=== PATIENT | female | born 1980 | race Caucasian/White ===

== ENCOUNTER → 2016-06-16 | Outpatient (CLI) | payer OTHER ==
[2016-02-22 10:26] VITALS: BP 120/69
[~2016-06-16] MED LIST: ALPR0.5T PO; ASPI81TA2 PO; IBUP-1060 PO; LEVO100T5 PO; NIFE30TA17 PO; NORE1TAB48 PO; PARO20TA55 PO; PREN-6 PO; ZOLP5TAB PO
--- NOTE | 2016-06-16 10:10 | RAD ---
Left breast ultrasound History: Patient is breast-feeding, palpable lump in the left breast. Comparison: None. Findings: Ultrasound imaging was performed of the left breast by staff nuclear medicine technologist. In the left breast at 2:00, 2 cm from nipple, in the area of clinical interest, there is a well-circumscribed cyst with enhanced through transmission. Cyst measures 8 x 8 x 9 mm. Impression: Palpable lesion in the breast at 6:00, 2 cm from nipple, corresponds to 9 mm simple cyst. BI-RADS CATEGORY: 2 BENIGN FINDING(S) RECOMMENDED FOLLOW-UP: CLIN FOLLOW UP IMAGING CLINICALLY INDICATED
== END | disposition home or self-care (01) ==
LOC: KCIC MAMMO 09:31
PROVIDERS: ATTEND Obstetrics & Gynecology
DX: N63 Unspecified lump in breast (principal)
CPT/HCPCS: 76641

== ENCOUNTER 2017-03-27 07:12 | Emergency (ER) | payer OTHER ==
[~2017-03-27 07:12] MED LIST changes: +ASPI-630 PO; -ASPI81TA2 PO; -PARO20TA55 PO; +PARO20TA99 PO
--- NOTE | 2017-03-27 07:38 | PHYS DOC ---
Past Medical History Past Medical History: Hypothyroid Past Surgical History: Other Additional Past Surgical Histo: Right ectopic Alcohol Use: None Drug Use: None Adult General Chief Complaint Chief Complaint: FOOT INJURY PAIN HPI HPI Patient is a 36 year old female who presents with mild pain on the right foot that began a month ago after she dropped a railroad tie on her right foot. She states the pain is mostly on the great toe at the MTP joint with occasional numbness to the toe. Review of Systems Review of Systems Constitutional: Denies fever or chills [] Musculoskeletal: Right foot pain Integument: Denies rash or skin lesions [] Neurologic: Denies headache, focal weakness or sensory changes [] ] Allergies Allergies Allergies Coded Allergies Type Severity Reaction Last Updated Verified Sulfa (Sulfonamide Antibiotics) Allergy Severe Anaphylaxis 02/03/15 Yes Physical Exam Physical Exam Constitutional: Well developed, well nourished, no acute distress, non-toxic appearance. [] Back: No tenderness, no CVA tenderness. [] Extremities: Right foot with no obvious deformity. Tenderness on palpation of the right great toe MTP joint. Full range of motion to the right foot and toes. No pain or tenderness on the navicular bone or the base of the fifth metatarsal of the right foot. +2 right pedal pulse. Cap refill less than 2 seconds the right toes. Sensation intact to the right foot.. Neurologic: Alert and oriented X 3, normal motor function, normal sensory function, no focal deficits noted. [] Psychologic: Affect normal, judgement normal, mood normal. [] Current Patient Data Vital Signs Vital Signs Date Time Temp Pulse Resp B/P (MAP) Pulse Ox O2 Delivery O2 Flow Rate FiO2 03/27/17 08:09 98.2 16 123/76 (92) Room Air 98.2 EKG EKG [] Radiology/Procedures Radiology/Procedures []PROCEDURE: FOOT RIGHT 3V Three-view right foot radiographs 03/27/2017 Clinical history: Right foot pain for the last 6 weeks after dropping rail road tie on foot. AP, lateral and oblique digital radiographs of the right foot were obtained. No fracture or dislocation of the right foot is seen. No radiopaque foreign body is noted. Mild degenerative changes are seen involving the first MTP joint. Impression: No fracture or dislocation of the right foot is seen. DICTATED and SIGNED BY: CHICHO REARDON MD DATE: 03/27/17 0816 CC: YRIS PASCUAL APRN; WILLIAM ASH MD ~ Course & Med Decision Making Course & Med Decision Making Pertinent Labs and Imaging studies reviewed. (See chart for details) Patient is in the ED with right foot contusion after dropping a railroad tie on her foot one month ago. Right foot x-rays interpreted by radiologist were negative for any acute findings. Offered patient an orthopedic shoe, she refused it. Discharged with diclofenac cream. OTC anti-inflammatories and Tylenol recommended. Follow-up with orthopedic doctor in the next 7 days. Ice and elevation encouraged. Dragon Disclaimer Dragon Disclaimer This electronic medical record was generated, in whole or in part, using a voice recognition dictation system. Departure Departure Impression: Primary Impression: Contusion of right foot Disposition: 01 HOME, SELF-CARE Condition: STABLE Referrals: WILLIAM ASH MD (PCP) follow up in the next 7 days Patient Instructions: Contusion, [id number] Additional Instructions: You were seen for right foot contusion. Ice and elevate the extremity. Take an anti-inflammatories as needed for pain or Tylenol. Follow up with the provided orthopedic doctor or your own doctor in the next 7 days. I wrote your prescription for diclofenac cream. This is an anti-inflammatory cream. Use it as needed for pain. Scripts Diclofenac Sodium (VOLTAREN) 100 Gm Gel..gram. 1 GM TP QID, #100 GM 2 Refills Prov: YRIS PASCUAL APRN 03/27/17 Problem Qualifiers Primary Impression: Contusion of right foot Encounter type: initial encounter Qualified Codes: S90.31XA - Contusion of right foot, initial encounter YRIS PASCUAL APRN Mar 27, 2017 07:38
[2017-03-27 08:09] VITALS: BP 123/76
--- NOTE | 2017-03-27 08:23 | RAD ---
Three-view right foot radiographs 03/27/2017 Clinical history: Right foot pain for the last 6 weeks after dropping rail road tie on foot. AP, lateral and oblique digital radiographs of the right foot were obtained. No fracture or dislocation of the right foot is seen. No radiopaque foreign body is noted. Mild degenerative changes are seen involving the first MTP joint. Impression: No fracture or dislocation of the right foot is seen.
[2017-03-27] MEDS ORDERED: DICL100G18 TP (08:34)
== END 2017-03-27 08:53 | disposition home or self-care (01) ==
LOC: ER 07:12
DX: S90.31XA Contusion of right foot, initial encounter (principal); E03.9 Hypothyroidism, unspecified; Z88.2 Allergy status to sulfonamides; W22.8XXA Striking against or struck by other objects, initial encounter; Y93.89 Activity, other specified; Y92.89 Other specified places as the place of occurrence of the external cause; Y99.8 Other external cause status
CPT/HCPCS: 73630; 99284

== ENCOUNTER → 2017-07-22 | Outpatient (CLI) | payer OTHER | END | disposition home or self-care (01) | LOC: KCIC US 13:30 | DX: Z01.411 Encounter for gynecological examination (general) (routine) with abnormal findings (principal); N83.202 Unspecified ovarian cyst, left side | CPT/HCPCS: 76856 ==

== ENCOUNTER 2017-12-31 01:29 | Emergency (ER) | payer OTHER ==
[2017-12-31 03:07] LABS: ADD MAN DIFF? NO; BILIRUBIN,URINE NEGATIVE (NEG); CLARITY,URINE CLEAR; COLOR,URINE YELLOW; GLUCOSE,URINE NEGATIVE (NEG); NITRITE,URINE NEGATIVE (NEG); PH,URINE 5.5; PROTEIN,URINE NEGATIVE (NEG-TRACE); UROBILINOGEN,URINE 0.2 mg/dL (0.2 mg/dL)
[2017-12-31 03:10] LABS: BASO % 1 % (0-3); EOS # 0.1 x10^3/uL (0.0-0.7); EOS % 1 % (0-3); HEMATOCRIT 39.6 % (36.0-47.0); HEMOGLOBIN 13.8 g/dL (12.0-15.5); LYMPH # 3.5 x10^3/uL (1.0-4.8); LYMPH % 40 % (24-48); MEAN CORPUSCULAR HEMOGLOBIN 34 pg (25-35); MEAN CORPUSCULAR HGB CONC 35 g/dL (31-37); MEAN CORPUSCULAR VOLUME 98 fL (79-100); MONO # 0.6 x10^3/uL (0.0-1.1); MONO % 7 % (0-9); NEUT # 4.5 x10^3uL (1.8-7.7); NEUT % 52 % (31-73); PLATELET COUNT 372 x10^3/uL (140-400); RED BLOOD COUNT 4.05 x10^6/uL (3.50-5.40); WHITE BLOOD COUNT 8.7 x10^3/uL (4.0-11.0)
[2017-12-31 03:15] LABS: BACTERIA,URINE 0 /HPF (0-FEW); RBC,URINE 0 /HPF (0-2); WBC,URINE 0 /HPF (0-4)
[2017-12-31 03:16] LABS: SQUAMOUS EPITHELIAL CELL,UR FEW /LPF
[2017-12-31 03:18] LABS: ANION GAP 10 (6-14); BLOOD UREA NITROGEN 14 mg/dL (7-20); BUN/CREATININE RATIO 20 (6-20); CALCIUM 9.9 mg/dL (8.5-10.1); CARBON DIOXIDE 25 mmol/L (21-32); CHLORIDE 103 mmol/L (98-107); CREATININE 0.7 mg/dL (0.6-1.0); GFR 95.2; GLUCOSE 96 mg/dL (70-99); POTASSIUM 3.6 mmol/L (3.5-5.1); SODIUM 138 mmol/L (136-145)
[2017-12-31 03:24] LABS: ALBUMIN/GLOBULIN RATIO 1.3 (1.0-1.7); ALK PHOS 53 U/L (46-116); ALT (SGPT) 20 U/L (14-59); AST (SGOT) 14 U/L (15-37); LIPASE 193 U/L (73-393); MAGNESIUM 1.8 mg/dL (1.8-2.4); TOTAL BILIRUBIN 0.2 mg/dL (0.2-1.0); TOTAL PROTEIN 7.2 g/dL (6.4-8.2)
[2017-12-31] MEDS ORDERED: METOCLOPRAMIDE HCL 10 MG/2 ML VIAL. (03:37)
[2017-12-31] MEDS ORDERED: KETOROLAC 30 MG/ML INJ. (03:37)
[2017-12-31] MEDS: METOCLOPRAMIDE HCL 10 MG/2 ML VIAL. IV (03:46)
[2017-12-31] MEDS: KETOROLAC 30 MG/ML INJ. IV (03:47)
[2017-12-31] MEDS: IV NORMAL SALINE 1000ML BAG 1,000 ML IV (03:48)
[2017-12-31 04:24] LABS: NEG OBC UR NEG; POS OBC UR POS; U PREG PATIENT NEGATIVE (NEG)
== END 2017-12-31 05:24 | disposition home or self-care (01) ==
LOC: ER 01:29
DX: R10.9 Unspecified abdominal pain (principal); K59.00 Constipation, unspecified; E03.9 Hypothyroidism, unspecified; Z88.2 Allergy status to sulfonamides
CPT/HCPCS: 36415; 74176; 80053; 81001; 81025; 83690; 83735; 85025; 96374; 96375; 99285-25; J1885; J2765; J7030

== ENCOUNTER → 2018-08-26 | Outpatient (CLI) | payer OTHER ==
[2017-12-31 04:18] VITALS: BP 113/57
[~2018-08-26] MED LIST changes: +ALBU2.5V8 INH; +AZIT250T PO; +DICL100G18 TP; +ONDA4TAB7 PO; +PRED50TA PO
--- NOTE | 2018-08-26 16:21 | RAD ---
Indication: SURVEY, SIZE DATES DISCREPANCY TECHNIQUE: Ultrasound OB greater than 14 weeks. COMPARISON: None FINDINGS: The cervix measures 5 cm in length and is closed. Placenta is anterior wall in location. Cord insertion is seen. Three-vessel cord is seen. Bilateral lower extremities, bladder, arms are seen. Biparietal diameter measures 4.5 cm corresponding to gestation age of 19 weeks 5 days. Head circumference measures 16.9 cm corresponding to gestation age of 19 weeks 4 days. Abdominal circumference measures 14.8 cm corresponding to gestation age of 20 weeks 0 days. Femoral length measures 3.2 cm corresponding to gestation age of 20 weeks 0 days. Estimated weight of 325 g +/- 48 g. Lips, face, spine, four-chamber heart, kidneys are seen. Heart rate 144 bpm. Variable lie. Normal amniotic fluid index. IMPRESSION: Single live viable intrauterine with estimated gestation age of 19 weeks 6 days and due date of 01/14/2019. Electronically signed by: Jairo Calloway DO (08/26/2018 4:18 PM) [facility]
== END | disposition home or self-care (01) ==
LOC: US 11:59
PROVIDERS: ATTEND Obstetrics & Gynecology
DX: O26.842 Uterine size-date discrepancy, second trimester (principal); Z3A.19 19 weeks gestation of pregnancy
CPT/HCPCS: 76805

== ENCOUNTER 2018-10-10 09:35 | Emergency (ER) | payer OTHER ==
[~2018-10-10] VITALS: Ht 162.6 cm; Wt 54.4 kg
[~2018-10-10 09:35] MED LIST changes: -ALBU2.5V8 INH; -AZIT250T PO; -PRED50TA PO
[2018-10-10 09:59] LABS: BILIRUBIN,URINE NEGATIVE (NEG); CLARITY,URINE CLEAR; COLOR,URINE YELLOW; NITRITE,URINE NEGATIVE (NEG); PROTEIN,URINE NEGATIVE (NEG-TRACE); UROBILINOGEN,URINE 0.2 mg/dL (0.2 mg/dL)
[2018-10-10 10:00] VITALS: BP 127/88
[2018-10-10] MEDS ORDERED: predniSONE 10 MG TABLET PO ONE (10:00)
[2018-10-10] MEDS ORDERED: IV NORMAL SALINE 1000ML BAG 1,000 ML IV ONE (10:00)
[2018-10-10] MEDS ORDERED: ALBUTEROL SULFATE 2.5 MG/3 ML NEBU. NEB ONE (10:00)
[2018-10-10 10:14] LABS: BACTERIA,URINE 0 /HPF (0-FEW); RBC,URINE 0 /HPF (0-2); SQUAMOUS EPITHELIAL CELL,UR FEW /LPF; WBC,URINE 0 /HPF (0-4)
[2018-10-10 10:21] LABS: INFLUENZA A PATIENT NEGATIVE (NEGATIVE); INFLUENZA B PATIENT NEGATIVE (NEGATIVE)
--- NOTE | 2018-10-10 10:28 | RAD ---
CHEST AP ONLY Clinical indications: Shortness of air for one week. COMPARISON: September 10, 2007. Findings: Chronic interstitial thickening is seen bilaterally which is stable. No acute lung infiltrate or pleural effusion or pulmonary edema or lung mass or pneumothorax is seen. The heart size, pulmonary vasculature, mediastinum and both vanessa are unremarkable. Impression: No new radiographic abnormality is seen. Electronically signed by: Sukhwinder Yoon MD (10/10/2018 10:25 AM) [facility]
--- NOTE | 2018-10-10 10:48 | PHYS DOC ---
Past Medical History Past Medical History: Anxiety, Depression, Hypothyroid Past Surgical History: Other Additional Past Surgical Histo: Right ectopic Alcohol Use: Occasionally Drug Use: None Adult General Chief Complaint Chief Complaint: FEVER HPI HPI Patient is a 38 year old female who presents with cough and shortness of air times one week. The patient thought that she had a virus or potentially the flu. She is 6-1/[address] Fitzpatrick for her obstetric care. She states that her cough is not productive. She does not have a history of COPD or asthma. She does not smoke cigarettes. Review of Systems Review of Systems Constitutional: Denies fever or chills [] Eyes: Denies change in visual acuity, redness, or eye pain [] HENT: Denies nasal congestion or sore throat [] Respiratory: See history of present illness Cardiovascular: No additional information not addressed in HPI [] GI: Denies abdominal pain, nausea, vomiting, bloody stools or diarrhea [] : Denies dysuria or hematuria [] Musculoskeletal: Denies back pain or joint pain [] Integument: Denies rash or skin lesions [] Neurologic: Denies headache, focal weakness or sensory changes [] Endocrine: Denies polyuria or polydipsia [] All other systems were reviewed and found to be within normal limits, except as documented in this note. Current Medications Current Medications Current Medications Medications (Trade) Dose Ordered Sig/Francesca Start Time Stop Time Status Last Admin Dose Admin Albuterol Sulfate (Ventolin Neb Soln) 2.5 mg 1X ONCE 10/10/18 10:00 10/10/18 10:01 DC 10/10/18 10:11 2.5 MG Prednisone (Prednisone) 50 mg 1X ONCE 10/10/18 10:00 10/10/18 10:01 DC 10/10/18 10:38 50 MG Sodium Chloride 1,000 ml @ 1,000 mls/hr 1X ONCE 10/10/18 10:00 10/10/18 10:59 DC 10/10/18 10:39 1,000 MLS/HR Allergies Allergies Allergies Coded Allergies Type Severity Reaction Last Updated Verified Sulfa (Sulfonamide Antibiotics) Allergy Severe Anaphylaxis 05/30/18 Yes Physical Exam Physical Exam Constitutional: Well developed, well nourished, no acute distress, non-toxic appearance. [] HENT: Normocephalic, atraumatic, bilateral external ears normal, oropharynx moist, no oral exudates, nose normal. [] Eyes: PERRLA, EOMI, conjunctiva normal, no discharge. [] Neck: Normal range of motion, no tenderness, supple, no stridor. [] Cardiovascular:Heart rate regular rhythm, no murmur [] Lungs & Thorax: Bilateral breath sounds have some rhonchi that clear with coughing, mild wheezing noted Abdomen: Bowel sounds normal, soft, no tenderness, no masses, no pulsatile masses. [] Skin: Warm, dry, no erythema, no rash. [] Back: No tenderness, no CVA tenderness. [] Extremities: No tenderness, no cyanosis, no clubbing, ROM intact, no edema. [] Neurologic: Alert and oriented X 3, normal motor function, normal sensory function, no focal deficits noted. [] Psychologic: Affect normal, judgement normal, mood normal. [] Current Patient Data Vital Signs Vital Signs Date Time Temp Pulse Resp B/P (MAP) Pulse Ox O2 Delivery O2 Flow Rate FiO2 10/10/18 10:11 Room Air 10/10/18 10:00 98.0 95 16 127/88 (101) 100 98.0 Lab Values Laboratory Tests Test 10/10/18 09:45 10/10/18 10:36 Urine Collection Type Unknown Urine Color Yellow Urine Clarity Clear Urine pH 7.0 Urine Specific [place] <=1.005 Urine Protein Negative mg/dL (NEG-TRACE) Urine Glucose (UA) Negative mg/dL (NEG) Urine Ketones (Stick) Negative mg/dL (NEG) Urine Blood Negative (NEG) Urine Nitrite Negative (NEG) Urine Bilirubin Negative (NEG) Urine Urobilinogen Dipstick 0.2 mg/dL (0.2 mg/dL) Urine Leukocyte Esterase Negative (NEG) Urine RBC 0 /HPF (0-2) Urine WBC 0 /HPF (0-4) Urine Squamous Epithelial Cells Few /LPF Urine Bacteria 0 /HPF (0-FEW) Influenza Type A Antigen Negative (NEGATIVE) Influenza Type B Antigen Negative (NEGATIVE) White Blood Count 15.5 x10^3/uL (4.0-11.0) H Red Blood Count 3.66 x10^6/uL (3.50-5.40) Hemoglobin 11.9 g/dL (12.0-15.5) L Hematocrit 35.3 % (36.0-47.0) L Mean Corpuscular Volume 97 fL (79-100) Mean Corpuscular Hemoglobin 33 pg (25-35) Mean Corpuscular Hemoglobin Concent 34 g/dL (31-37) Red Cell Distribution Width 12.0 % (11.5-14.5) Platelet Count 383 x10^3/uL (140-400) Neutrophils (%) (Auto) 79 % (31-73) H Lymphocytes (%) (Auto) 18 % (24-48) L Monocytes (%) (Auto) 3 % (0-9) Eosinophils (%) (Auto) 0 % (0-3) Basophils (%) (Auto) 0 % (0-3) Neutrophils # (Auto) 12.2 x10^3uL (1.8-7.7) H Lymphocytes # (Auto) 2.7 x10^3/uL (1.0-4.8) Monocytes # (Auto) 0.5 x10^3/uL (0.0-1.1) Eosinophils # (Auto) 0.0 x10^3/uL (0.0-0.7) Basophils # (Auto) 0.0 x10^3/uL (0.0-0.2) Sodium Level 137 mmol/L (136-145) Potassium Level 3.3 mmol/L (3.5-5.1) L Chloride Level 100 mmol/L (98-107) Carbon Dioxide Level 24 mmol/L (21-32) Anion Gap 13 (6-14) Blood Urea Nitrogen 6 mg/dL (7-20) L Creatinine 0.5 mg/dL (0.6-1.0) L Estimated GFR (Cockcroft-Gault) 139.6 BUN/Creatinine Ratio 12 (6-20) Glucose Level 97 mg/dL (70-99) Calcium Level 9.4 mg/dL (8.5-10.1) Total Bilirubin 0.1 mg/dL (0.2-1.0) L Aspartate Amino Transferase (AST) 15 U/L (15-37) Alanine Aminotransferase (ALT) 21 U/L (14-59) Alkaline Phosphatase 70 U/L (46-116) Total Protein 7.5 g/dL (6.4-8.2) Albumin 3.2 g/dL (3.4-5.0) L Albumin/Globulin Ratio 0.7 (1.0-1.7) L Laboratory Tests 10/10/18 10:36 Laboratory Tests 10/10/18 10:36 EKG EKG [] Radiology/Procedures Radiology/Procedures []PATIENT: CORAL DÍAZACCOUNT: [id number]#: [id number] : 1980 LOCATION: ER AGE: 38 SEX: F EXAM STATUS: REG ER ORD. PHYSICIAN: ERA BENNETT APRN REASON: soa x 1 week PROCEDURE: CHEST AP ONLY CHEST AP ONLY Clinical indications: Shortness of air for one week. COMPARISON: September 10, 2007. Findings: Chronic interstitial thickening is seen bilaterally which is stable. No acute lung infiltrate or pleural effusion or pulmonary edema or lung mass or pneumothorax is seen. The heart size, pulmonary vasculature, mediastinum and both vanessa are unremarkable. Impression: No new radiographic abnormality is seen. Electronically signed by: Connie Yoon MD (10/10/2018 10:25 AM) [place] [id number] DICTATED and SIGNED BY: CONNIE YOON MD DATE: 10/10/18 1025 Course & Med Decision Making Course & Med Decision Making Pertinent Labs and Imaging studies reviewed. (See chart for details) []The patient had an albuterol nebulizer treatment as well as 50 mg of prednisone. She did have clearing of her breath sounds. We did proceed with an x-ray. She is negative for pneumonia but we will treat with antibiotic therapy given the severity of her symptoms. Dragon Disclaimer Dragon Disclaimer This electronic medical record was generated, in whole or in part, using a voice recognition dictation system. Departure Departure Impression: Primary Impression: Bronchitis Disposition: 01 HOME, SELF-CARE Condition: STABLE Referrals: WILLIAM ASH MD (PCP) Patient Instructions: Bronchitis Additional Instructions: Take the medication as directed. Follow-up with Dr. Sanders in 1 week for recheck. If worsening return to the hospital. Scripts Prednisone (PREDNISONE) 50 Mg Tablet 1 TAB PO DAILY for bronchitis, #5 TAB Prov: ERA BENNETT APRN 10/10/18 Albuterol Sulfate (Proair Hfa) 8.5 Gm Hfa.aer.ad 1 PUFF INH PRN Q6HRS PRN for SHORTNESS OF BREATH, #1 INHALER Prov: ERA BENNETT APRN 10/10/18 Azithromycin (ZITHROMAX) 250 Mg Tablet 1 PKG PO UD for bronchitis, #1 PKG Prov: ERA BENNETT APRN 10/10/18 ERA BENNETT APRN October 10, 2018 10:48
[2018-10-10 11:01] LABS: BASO % 0 % (0-3); CALCIUM 9.4 mg/dL (8.5-10.1); CREATININE 0.5 mg/dL (0.6-1.0); EOS % 0 % (0-3); GFR 139.6; HEMATOCRIT 35.3 % (36.0-47.0); HEMOGLOBIN 11.9 g/dL (12.0-15.5); LYMPH # 2.7 x10^3/uL (1.0-4.8); LYMPH % 18 % (24-48); MEAN CORPUSCULAR HEMOGLOBIN 33 pg (25-35); MEAN CORPUSCULAR HGB CONC 34 g/dL (31-37); MEAN CORPUSCULAR VOLUME 97 fL (79-100); MONO # 0.5 x10^3/uL (0.0-1.1); MONO % 3 % (0-9); NEUT # 12.2 x10^3uL (1.8-7.7); NEUT % 79 % (31-73); PLATELET COUNT 383 x10^3/uL (140-400); POTASSIUM 3.3 mmol/L (3.5-5.1); RED BLOOD COUNT 3.66 x10^6/uL (3.50-5.40); WHITE BLOOD COUNT 15.5 x10^3/uL (4.0-11.0)
[2018-10-10 11:07] LABS: ALBUMIN 3.2 g/dL (3.4-5.0); ALBUMIN/GLOBULIN RATIO 0.7 (1.0-1.7); TOTAL BILIRUBIN 0.1 mg/dL (0.2-1.0); TOTAL PROTEIN 7.5 g/dL (6.4-8.2)
[2018-10-10] MEDS ORDERED: PRED50TA PO (11:24)
[2018-10-10] MEDS ORDERED: ALBU2.5V8 INH (11:24)
[2018-10-10] MEDS ORDERED: AZIT250T PO (11:24)
== END 2018-10-10 11:35 | disposition home or self-care (01) ==
LOC: ER 09:35
DX: O99.511 Diseases of the respiratory system complicating pregnancy, first trimester (principal); J45.909 Unspecified asthma, uncomplicated; E03.9 Hypothyroidism, unspecified; Z3A.01 Less than 8 weeks gestation of pregnancy; Z88.2 Allergy status to sulfonamides
CPT/HCPCS: 36415; 71045; 80053; 81001; 85025; 87804; 94640; 99285; J7030; J7512; J7613

== ENCOUNTER 2018-10-20 14:49 | Observation (INO) | payer OTHER ==
[~2018-10-20 14:49] MED LIST changes: +ALBU2.5V8 INH; +AZIT250T PO; +PRED50TA PO
[2018-10-20 16:06] LABS: BILIRUBIN,URINE NEGATIVE (NEG); CLARITY,URINE CLEAR; COLOR,URINE YELLOW; NITRITE,URINE NEGATIVE (NEG); PH,URINE 6.5; PROTEIN,URINE NEGATIVE (NEG-TRACE); UROBILINOGEN,URINE 0.2 mg/dL (0.2 mg/dL)
[2018-10-20 16:15] LABS: BACTERIA,URINE 0 /HPF (0-FEW); RBC,URINE 0 /HPF (0-2); SQUAMOUS EPITHELIAL CELL,UR FEW /LPF; WBC,URINE 0 /HPF (0-4)
== END 2018-10-20 16:45 | disposition home or self-care (01) ==
LOC: 3 SO LND 14:49
PROVIDERS: ADMIT Obstetrics & Gynecology; ATTEND Obstetrics & Gynecology
DX: O62.9 Abnormality of forces of labor, unspecified (principal); O99.89 Other specified diseases and conditions complicating pregnancy, childbirth and the puerperium; M54.9 Dorsalgia, unspecified; Z3A.27 27 weeks gestation of pregnancy
CPT/HCPCS: 81001; G0378; G0379

== ENCOUNTER 2018-11-29 09:54 | Observation (INO) | payer OTHER ==
[2018-11-29 10:30] LABS: BILIRUBIN,URINE NEGATIVE (NEG); CLARITY,URINE CLEAR; COLOR,URINE YELLOW; NITRITE,URINE NEGATIVE (NEG); PH,URINE 6.5; PROTEIN,URINE NEGATIVE (NEG-TRACE); UROBILINOGEN,URINE 0.2 mg/dL (0.2 mg/dL)
[2018-11-29] MEDS: IV RINGERS,LACTATED 1000ML 1,000 ML IV SCH (10:30)
[2018-11-29 10:45] LABS: BACTERIA,URINE FEW /HPF (0-FEW); RBC,URINE RARE /HPF (0-2); SQUAMOUS EPITHELIAL CELL,UR FEW /LPF
[2018-11-29 10:49] LABS: BASO # 0.1 x10^3/uL (0.0-0.2); BASO % 1 % (0-3); EOS % 0 % (0-3); HEMATOCRIT 35.1 % (36.0-47.0); HEMOGLOBIN 12.1 g/dL (12.0-15.5); LYMPH # 2.4 x10^3/uL (1.0-4.8); LYMPH % 22 % (24-48); MEAN CORPUSCULAR HEMOGLOBIN 33 pg (25-35); MEAN CORPUSCULAR HGB CONC 35 g/dL (31-37); MEAN CORPUSCULAR VOLUME 96 fL (79-100); MONO # 0.5 x10^3/uL (0.0-1.1); MONO % 5 % (0-9); NEUT # 8.1 x10^3uL (1.8-7.7); NEUT % 73 % (31-73); PLATELET COUNT 286 x10^3/uL (140-400); RED BLOOD COUNT 3.67 x10^6/uL (3.50-5.40); RED CELL DISTRIBUTION WIDTH 12.5 % (11.5-14.5); WHITE BLOOD COUNT 11.1 x10^3/uL (4.0-11.0)
[2018-11-29] MEDS: ONDANSETRON PF 4 MG/2 ML VIAL. IV PRN (10:55)
[2018-11-29 11:17] LABS: ALBUMIN 3.1 g/dL (3.4-5.0); ALBUMIN/GLOBULIN RATIO 0.9 (1.0-1.7); CALCIUM 9.6 mg/dL (8.5-10.1); CREATININE 0.5 mg/dL (0.6-1.0); GFR 139.6; POTASSIUM 4.2 mmol/L (3.5-5.1); TOTAL BILIRUBIN 0.2 mg/dL (0.2-1.0); TOTAL PROTEIN 6.5 g/dL (6.4-8.2)
[2018-11-29] MEDS ORDERED: TERBUTALINE 1 MG/ML VIAL. ONE (12:23)
[2018-11-29 12:31] VITALS: BP 136/83
[2018-11-29] MEDS: TERBUTALINE 1 MG/ML VIAL. SQ ONE (12:31)
== END 2018-11-29 14:23 | disposition home or self-care (01) ==
LOC: 3 SO LND 09:54
PROVIDERS: ADMIT Obstetrics & Gynecology; ATTEND Obstetrics & Gynecology
DX: O99.89 Other specified diseases and conditions complicating pregnancy, childbirth and the puerperium (principal); M54.5 Low back pain; O26.893 Other specified pregnancy related conditions, third trimester; R10.30 Lower abdominal pain, unspecified; R03.0 Elevated blood-pressure reading, without diagnosis of hypertension; Z3A.32 32 weeks gestation of pregnancy
CPT/HCPCS: 36415; 80053; 81001; 82570; 84156; 84443; 85025; 87086; 96372; 96374; G0378; G0379; J2405; J3105; J7120

== ENCOUNTER 2018-12-20 17:20 | Observation (INO) | payer OTHER ==
[2018-12-20] MEDS ORDERED: IV RINGERS,LACTATED 1000ML 1,000 ML IV SCH (17:50)
[2018-12-20 18:30] LABS: BILIRUBIN,URINE NEGATIVE (NEG); CLARITY,URINE CLEAR; COLOR,URINE YELLOW; NITRITE,URINE NEGATIVE (NEG); PROTEIN,URINE NEGATIVE (NEG-TRACE); UROBILINOGEN,URINE 0.2 mg/dL (0.2 mg/dL)
[2018-12-20 18:38] LABS: BACTERIA,URINE 0 /HPF (0-FEW); RBC,URINE 0 /HPF (0-2); SQUAMOUS EPITHELIAL CELL,UR OCC /LPF; WBC,URINE OCC /HPF (0-4)
== END 2018-12-20 22:16 | disposition home or self-care (01) ==
LOC: 3 SO LND 17:20
PROVIDERS: ADMIT Obstetrics & Gynecology; ATTEND Obstetrics & Gynecology
DX: O62.9 Abnormality of forces of labor, unspecified (principal); O99.89 Other specified diseases and conditions complicating pregnancy, childbirth and the puerperium; M54.9 Dorsalgia, unspecified; R11.0 Nausea; Z3A.35 35 weeks gestation of pregnancy
CPT/HCPCS: 81001; G0378; G0379; J7120

== ENCOUNTER 2018-12-27 10:48 | Observation (INO) | payer OTHER ==
[~2018-12-27] VITALS: Ht 154.9 cm; Wt 63.0 kg
[2018-12-27] MEDS ORDERED: IV RINGERS,LACTATED 1000ML 1,000 ML IV SCH (10:51)
[2018-12-27 11:18] LABS: BILIRUBIN,URINE NEGATIVE (NEG); CLARITY,URINE CLEAR; NITRITE,URINE NEGATIVE (NEG); PROTEIN,URINE NEGATIVE (NEG-TRACE); UROBILINOGEN,URINE 0.2 mg/dL (0.2 mg/dL)
[2018-12-27 11:27] LABS: BACTERIA,URINE 0 /HPF (0-FEW); COLOR,URINE COLORLESS; RBC,URINE 0 /HPF (0-2); SQUAMOUS EPITHELIAL CELL,UR OCC /LPF; WBC,URINE 0 /HPF (0-4)
[2018-12-27 11:28] LABS: CREATININE,RANDOM URINE 13.7 mg/dL (Not Establ.)
[2018-12-27 11:34] LABS: BASO # 0.1 x10^3/uL (0.0-0.2); BASO % 1 % (0-3); EOS % 0 % (0-3); HEMOGLOBIN 12.7 g/dL (12.0-15.5); LYMPH # 2.6 x10^3/uL (1.0-4.8); LYMPH % 24 % (24-48); MEAN CORPUSCULAR HEMOGLOBIN 33 pg (25-35); MEAN CORPUSCULAR HGB CONC 34 g/dL (31-37); MEAN CORPUSCULAR VOLUME 97 fL (79-100); MONO # 0.4 x10^3/uL (0.0-1.1); MONO % 4 % (0-9); NEUT # 7.6 x10^3/uL (1.8-7.7); NEUT % 71 % (31-73); PLATELET COUNT 212 x10^3/uL (140-400); RED BLOOD COUNT 3.81 x10^6/uL (3.50-5.40); RED CELL DISTRIBUTION WIDTH 13.2 % (11.5-14.5); WHITE BLOOD COUNT 10.6 x10^3/uL (4.0-11.0)
[2018-12-27 11:41] LABS: CALCIUM 9.4 mg/dL (8.5-10.1); CREATININE 0.8 mg/dL (0.6-1.0); GFR 81.2
[2018-12-27 11:47] LABS: ALBUMIN 2.9 g/dL (3.4-5.0); ALBUMIN/GLOBULIN RATIO 0.9 (1.0-1.7); TOTAL BILIRUBIN 0.2 mg/dL (0.2-1.0); TOTAL PROTEIN 6.3 g/dL (6.4-8.2)
== END 2018-12-27 12:32 | disposition home or self-care (01) ==
LOC: 3 SO LND 10:48
PROVIDERS: ADMIT Obstetrics & Gynecology; ATTEND Obstetrics & Gynecology
DX: O13.3 Gestational [pregnancy-induced] hypertension without significant proteinuria, third trimester (principal); O62.9 Abnormality of forces of labor, unspecified; O26.893 Other specified pregnancy related conditions, third trimester; R51 Headache; H53.8 Other visual disturbances; R10.13 Epigastric pain; Z3A.36 36 weeks gestation of pregnancy
CPT/HCPCS: 36415; 80053; 81001; 82570; 84156; 84443; 85025; G0378; G0379

== ENCOUNTER 2019-05-23 13:22 | Emergency (ER) | payer OTHER ==
[~2019-05-23] VITALS: Ht 154.9 cm; Wt 57.2 kg
[2019-05-23] MEDS ORDERED: IV NORMAL SALINE 1000ML BAG 1,000 ML IV SCH (13:53)
--- NOTE | 2019-05-23 14:00 | EKG ---
[facility] [address] [place] [address] Test Date: 2019-05-23 Test Time: 13:44:34 Pat Name: CORAL DÍAZ Department: Room: Gender: F Product Introduction Manager: : 1980 Requested By: CASSIE COATS Order Number: [id number] Reading MD: Measurements Intervals [place] Rate: 82 P: 34 WV: 146 QRS: 33 QRSD: 86 T: 28 QT: 360 QTc: 423 Interpretive Statements SINUS RHYTHM NON SPECIFIC T ABNORMALITY BORDERLINE ECG No previous ECG available for comparison
[2019-05-23 14:10] LABS: BASO # 0.1 x10^3/uL (0.0-0.2); BASO % 1 % (0-3); EOS % 1 % (0-3); HEMATOCRIT 38.5 % (36.0-47.0); HEMOGLOBIN 13.1 g/dL (12.0-15.5); LYMPH # 2.8 x10^3/uL (1.0-4.8); LYMPH % 33 % (24-48); MEAN CORPUSCULAR HEMOGLOBIN 33 pg (25-35); MEAN CORPUSCULAR HGB CONC 34 g/dL (31-37); MEAN CORPUSCULAR VOLUME 95 fL (79-100); MONO # 0.4 x10^3/uL (0.0-1.1); MONO % 4 % (0-9); NEUT # 5.2 x10^3/uL (1.8-7.7); NEUT % 62 % (31-73); PLATELET COUNT 348 x10^3/uL (140-400); RED BLOOD COUNT 4.05 x10^6/uL (3.50-5.40); RED CELL DISTRIBUTION WIDTH 11.9 % (11.5-14.5); WHITE BLOOD COUNT 8.4 x10^3/uL (4.0-11.0)
--- NOTE | 2019-05-23 14:18 | RAD ---
PA and lateral chest. HISTORY: Palpitations PA and lateral views were taken of the chest. Lungs are free of infiltrates. Heart is normal in size. There is no pleural effusion. IMPRESSION: 1. No acute chest disease. Electronically signed by: Eamon Villanueva MD (05/23/2019 2:15 PM) [id number]
[2019-05-23 14:45] LABS: CALCIUM 9.3 mg/dL (8.5-10.1); CREATININE 0.7 mg/dL (0.6-1.0); GFR 94.7; POTASSIUM 3.7 mmol/L (3.5-5.1)
[2019-05-23 14:51] LABS: ALBUMIN 3.8 g/dL (3.4-5.0); ALBUMIN/GLOBULIN RATIO 1.1 (1.0-1.7); MAGNESIUM 1.7 mg/dL (1.8-2.4); TOTAL BILIRUBIN 0.2 mg/dL (0.2-1.0); TOTAL PROTEIN 7.4 g/dL (6.4-8.2)
[2019-05-23 15:08] VITALS: BP 152/96
--- NOTE | 2019-05-23 15:28 | PHYS DOC ---
Past Medical History Past Medical History: Anxiety, Depression, Hypothyroid Additional Past Medical Histor: hypertension during Past Surgical History: , Tubal ligation, Other Additional Past Surgical Histo: Right ectopic Alcohol Use: Occasionally Drug Use: None Adult General Chief Complaint Chief Complaint: Palpitations HPI HPI Patient is a 38 year old female patient with history of hypothyroidism on 125 g of Thyroxin, anxiety and depression who presents with complaint of palpitation. Patient state for the last 1 week he had exertional episodes of palpitation without shortness of breath or chest pain and tingling she has hyperthyroidism and stopped taking thyroxine for the last 5 days without improvement of her condition. Patient also complained of elevation of blood pressure without having history of hypertension and states she had hypertension during but for the last few days her blood pressure is running more than 140 over 90s. Patient also complaining of increase of appetite and decrease of sleep. Review of Systems Review of Systems Constitutional: Denies fever or chills [] Eyes: Denies change in visual acuity, redness, or eye pain [] HENT: Denies nasal congestion or sore throat [] Respiratory: Denies cough or shortness of breath [] Cardiovascular: No additional information not addressed in HPI [] GI: Denies abdominal pain, nausea, vomiting, bloody stools or diarrhea [] : Denies dysuria or hematuria [] Musculoskeletal: Denies back pain or joint pain [] Integument: Denies rash or skin lesions [] Neurologic: Denies headache, focal weakness or sensory changes [] Endocrine: Denies polyuria or polydipsia [] All other systems were reviewed and found to be within normal limits, except as documented in this note. Current Medications Current Medications Current Medications Medications (Trade) Dose Ordered Sig/Francesca Start Time Stop Time Status Last Admin Dose Admin Sodium Chloride 1,000 ml @ 1,000 mls/hr Q1H 05/23/19 13:53 05/23/19 14:52 DC 05/23/19 13:57 1,000 MLS/HR Allergies Allergies Allergies Coded Allergies Type Severity Reaction Last Updated Verified Sulfa (Sulfonamide Antibiotics) Allergy Severe Anaphylaxis 05/30/18 Yes Physical Exam Physical Exam Constitutional: Well developed, well nourished, mild distress, non-toxic appearance. [] HENT: Normocephalic, atraumatic. Eyes: PERRLA, EOMI, conjunctiva normal, no discharge. [] Neck: Normal range of motion, no tenderness, supple, no stridor. [] Cardiovascular:Heart rate regular rhythm, no murmur [] Lungs & Thorax: Bilateral breath sounds clear to auscultation [] Abdomen: Bowel sounds normal, soft, no tenderness, no masses, no pulsatile masses. [] Skin: Warm, dry, no erythema, no rash. [] Back: No tenderness, no CVA tenderness. [] Extremities: No tenderness, no cyanosis, no clubbing, ROM intact, no edema. [] Neurologic: Alert and oriented X 3, no focal deficits noted. [] Psychologic: Affect normal, judgement normal, mood normal. [] Current Patient Data Vital Signs Vital Signs Date Time Temp Pulse Resp B/P (MAP) Pulse Ox O2 Delivery O2 Flow Rate FiO2 05/23/19 15:08 68 20 152/96 (114) 99 Room Air 05/23/19 13:40 98.9 98.9 Lab Values Laboratory Tests Test 05/23/19 13:55 White Blood Count 8.4 x10^3/uL (4.0-11.0) Red Blood Count 4.05 x10^6/uL (3.50-5.40) Hemoglobin 13.1 g/dL (12.0-15.5) Hematocrit 38.5 % (36.0-47.0) Mean Corpuscular Volume 95 fL (79-100) Mean Corpuscular Hemoglobin 33 pg (25-35) Mean Corpuscular Hemoglobin Concent 34 g/dL (31-37) Red Cell Distribution Width 11.9 % (11.5-14.5) Platelet Count 348 x10^3/uL (140-400) Neutrophils (%) (Auto) 62 % (31-73) Lymphocytes (%) (Auto) 33 % (24-48) Monocytes (%) (Auto) 4 % (0-9) Eosinophils (%) (Auto) 1 % (0-3) Basophils (%) (Auto) 1 % (0-3) Neutrophils # (Auto) 5.2 x10^3/uL (1.8-7.7) Lymphocytes # (Auto) 2.8 x10^3/uL (1.0-4.8) Monocytes # (Auto) 0.4 x10^3/uL (0.0-1.1) Eosinophils # (Auto) 0.0 x10^3/uL (0.0-0.7) Basophils # (Auto) 0.1 x10^3/uL (0.0-0.2) D-Dimer (Monet) < 0.27 ug/mlFEU Sodium Level 142 mmol/L (136-145) Potassium Level 3.7 mmol/L (3.5-5.1) Chloride Level 105 mmol/L (98-107) Carbon Dioxide Level 27 mmol/L (21-32) Anion Gap 10 (6-14) Blood Urea Nitrogen 15 mg/dL (7-20) Creatinine 0.7 mg/dL (0.6-1.0) Estimated GFR (Cockcroft-Gault) 94.7 BUN/Creatinine Ratio 21 (6-20) H Glucose Level 88 mg/dL (70-99) Calcium Level 9.3 mg/dL (8.5-10.1) Magnesium Level 1.7 mg/dL (1.8-2.4) L Total Bilirubin 0.2 mg/dL (0.2-1.0) Aspartate Amino Transferase (AST) 13 U/L (15-37) L Alanine Aminotransferase (ALT) 17 U/L (14-59) Alkaline Phosphatase 79 U/L (46-116) Creatine Kinase 117 U/L (26-192) Troponin I Quantitative < 0.017 ng/mL (0.000-0.055) Total Protein 7.4 g/dL (6.4-8.2) Albumin 3.8 g/dL (3.4-5.0) Albumin/Globulin Ratio 1.1 (1.0-1.7) Thyroid Stimulating Hormone (TSH) 0.189 uIU/mL (0.358-3.74) L Laboratory Tests 05/23/19 13:55 Laboratory Tests 05/23/19 13:55 EKG EKG EKG interpreted by me. EKG at 1344 showed normal sinus rhythm at rate of ADHD, no acute ST and T-wave elevation, Radiology/Procedures Radiology/Procedures [][facility] [address] [place] [address] IMAGING REPORT Signed PATIENT: CORAL DÍAZ ACCOUNT: [id number] : 1980 LOCATION: ER AGE: 38 SEX: F EXAM STATUS: REG ER ORD. PHYSICIAN: CASSIE COATS MD REASON: Palpitation PROCEDURE: CHEST PA & LATERAL PA and lateral chest. HISTORY: Palpitations PA and lateral views were taken of the chest. Lungs are free of infiltrates. Heart is normal in size. There is no pleural effusion. IMPRESSION: 1. No acute chest disease. Electronically signed by: Eamon Pitts MD (05/23/2019 2:15 PM) [id number] DICTATED and SIGNED BY: EAMON PITTS MD DATE: 05/23/19 1415 Course & Med Decision Making Course & Med Decision Making Pertinent Labs and Imaging studies reviewed. (See chart for details) Evaluation of patient in ER showed 38-year-old female patient with history of hypothyroidism and complaining of hypertension and take tachycardia patient had normal heart rate in ER. TSH reported 0.0189.even she stopped taking her medication for several days. Patient was advised to stop taking thyroxine the same as before and follow up with her primary care physician regarding management of elevation of blood pressure and hyperthyroidism. Dragon Disclaimer Dragon Disclaimer This electronic medical record was generated, in whole or in part, using a voice recognition dictation system. Departure Departure Impression: Primary Impression: Hyperthyroidism Additional Impressions: Palpitation Elevated blood pressure reading without diagnosis of hypertension Hypomagnesemia Disposition: HOME, SELF-CARE (at 1526) Condition: IMPROVED Referrals: NO PCP (PCP) Patient Instructions: Form - Blood Pressure Record Sheet, How to Take Your Blood Pressure, Absp-mt-Dosn, Hyperthyroidism, Hypomagnesemia Additional Instructions: Drink plenty of liquids Follow-up with your primary care physician in 3-5 days Return to ER if not getting better do not take thyroxine Problem Qualifiers CASSIE COATS MD May 23, 2019 15:28
== END 2019-05-23 15:37 | disposition home or self-care (01) ==
LOC: ER 13:22
DX: E05.90 Thyrotoxicosis, unspecified without thyrotoxic crisis or storm (principal); R00.2 Palpitations; R03.0 Elevated blood-pressure reading, without diagnosis of hypertension; E83.42 Hypomagnesemia; F41.9 Anxiety disorder, unspecified; F32.9 Major depressive disorder, single episode, unspecified; E03.9 Hypothyroidism, unspecified; Z98.51 Tubal ligation status; Z98.890 Other specified postprocedural states; Z88.2 Allergy status to sulfonamides
CPT/HCPCS: 36415; 71046; 80053; 82550; 83735; 84443; 84484; 85025; 85379; 93005; 99285; J7030

== ENCOUNTER 2019-09-12 04:01 | Emergency (ER) | payer OTHER ==
[~2019-09-12] VITALS: Ht 152.4 cm; Wt 68.0 kg
[~2019-09-12 04:01] MED LIST changes: -NIFE30TA17 PO; +NIFE30TA95 PO
[2019-09-12 04:08] VITALS: BP 146/63
[2019-09-12] MEDS ORDERED: ORPH100T PO (04:21)
--- NOTE | 2019-09-12 04:23 | PHYS DOC ---
Past Medical History Past Medical History: Anxiety, Depression, Hypothyroid Additional Past Medical Histor: hypertension during Past Surgical History: , Tubal ligation, Other Additional Past Surgical Histo: Right ectopic Smoking Status: Never Smoker Alcohol Use: Occasionally Drug Use: None Adult General Chief Complaint Chief Complaint: NECK INJURY HPI HPI 39-year-old female presents with report of neck pain which started early this morning. 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 Reports she has been consistently moving patient from supine to prone and also donning and taking off personal protection equipment. Denies trauma. Denies fever/chills. Denies shortness of breath. Patient reports she hasn't taken any medication to help with the pain. Reports it has progressed to point she now has to hold her head to the right due to the pain and "muscle spasms". Review of Systems Review of Systems Constitutional: Denies fever or chills Eyes: Denies redness or eye pain HENT: Denies nasal congestion or sore throat Respiratory: Denies cough or shortness of breath Cardiovascular: Denies chest pain or palpitations GI: Denies abdominal pain, nausea, or vomiting : Denies dysuria or hematuria Musculoskeletal: Reports neck pain Integument: Denies rash or skin lesions Neurologic: Denies headache, focal weakness or sensory changes Complete systems were reviewed and found to be within normal limits, except as documented in this note. Current Medications Current Medications Current Medications Medications (Trade) Dose Ordered Sig/Francesca Start Time Stop Time Status Last Admin Dose Admin Ketorolac Tromethamine (Toradol 30mg Vial) 30 mg 1X ONCE 09/12/19 04:30 09/12/19 04:31 UNV Allergies Allergies Allergies Coded Allergies Type Severity Reaction Last Updated Verified Sulfa (Sulfonamide Antibiotics) Allergy Severe Anaphylaxis 05/30/18 Yes Physical Exam Physical Exam Constitutional: Well developed, well nourished, no acute distress, non-toxic appearance HENT: Normocephalic, atraumatic, oropharynx moist Eyes: vConjunctiva normal, no discharge Neck: Limited range of motion due to pain, head held at angle toward right, paraspinal tenderness, no midline tenderness, supple Lungs & Thorax: No respiratory distress, equal chest rise and fall Skin: Warm, dry, no erythema, no rash Back: No tenderness, no CVA tenderness Extremities: No tenderness, ROM intact, no edema Neurologic: Alert and oriented X 3, no focal deficits noted Psychologic: Affect normal, judgment normal EKG EKG [] Radiology/Procedures Radiology/Procedures [] Course & Med Decision Making Course & Med Decision Making Patient presents with report of neck pain which started this morning. 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 Denies any fever or chills. Denies . No midline cervical spine tenderness. No history of trauma. Symptomatic treatment provided with IM ketorolac. Prescription for muscle relaxer given. Patient stable for discharge with outpatient follow-up with PCP. Discussed findings and plan with patient, who acknowledges understanding and agreement. Dragon Disclaimer Mel Disclaimer This electronic medical record was generated, in whole or in part, using a voice recognition dictation system. Departure Departure Impression: Primary Impression: Cervical strain Disposition: HOME, SELF-CARE Condition: STABLE Referrals: NO PCP (PCP) Patient Instructions: Cervical Strain and Sprain with [facility] Additional Instructions: ICE area 20 min on then leave off for next 20 min. Repeat. Continue as needed for next few days. Use over the counter Ibuprofen 600mg (three over the counter tabs) 3x daily as needed for pain. May use over the counter Tylenol between doses as needed. Take muscle relaxer as needed per prescription. Cannot operate motor vehicle while under the influence of that medication. Scripts Orphenadrine Citrate (ORPHENADRINE CITRATE) 100 Mg Tablet.er 100 MG PO BID PRN for MUSCLE PAIN, #14 TAB Prov: JOSSELIN SAGASTUME DO 09/12/19 Problem Qualifiers Primary Impression: Cervical strain Encounter type: initial encounter Qualified Codes: S16.1XXA - Strain of muscle, fascia and tendon at neck level, initial encounter JOSSELIN SAGASTUME DO Sep 12, 2019 04:23
[2019-09-12] MEDS ORDERED: KETOROLAC 30 MG/ML VIAL. IM ONE (04:45)
== END 2019-09-12 04:50 | disposition home or self-care (01) ==
LOC: ER 04:01
DX: S16.1XXA Strain of muscle, fascia and tendon at neck level, initial encounter (principal); F41.9 Anxiety disorder, unspecified; F32.9 Major depressive disorder, single episode, unspecified; E03.9 Hypothyroidism, unspecified; I10 Essential (primary) hypertension; Z98.51 Tubal ligation status; Z88.2 Allergy status to sulfonamides; Z98.890 Other specified postprocedural states; X58.XXXA Exposure to other specified factors, initial encounter; Y93.89 Activity, other specified; Y92.89 Other specified places as the place of occurrence of the external cause; Y99.8 Other external cause status
CPT/HCPCS: 96372; 99283; J1885

== ENCOUNTER → 2019-10-23 | Outpatient (CLI) | payer OTHER ==
[~2019-10-23] MED LIST changes: -DICL100G18 TP; +DICL100G54 TP; +ORPH100T PO
--- NOTE | 2019-10-23 10:47 | RAD ---
CERVICAL SPINE 2-3V DATE: 10/23/2019 9:55 AM INDICATION: Neck pain COMPARISON: None. FINDINGS: The cervical spine is visualized to the level of the cervicothoracic junction on the lateral views. Bones/Alignment: No evidence of acute fracture. There is no listhesis. Normal alignment of the lateral masses of C1 on C2. Joints: Mild degenerative disc disease. The facets are normally aligned. Soft tissue: No significant prevertebral soft tissue swelling. IMPRESSION: No acute osseous abnormality. Mild degenerative changes. Electronically signed by: Joshua Mckeon MD (10/23/2019 10:44 AM) [id number]
--- NOTE | 2019-10-23 10:48 | RAD ---
THORACIC SPINE 3V DATE: 10/23/2019 9:56 AM INDICATION: Thoracic pain COMPARISON: None. FINDINGS: The upper thoracic vertebrae are obscured on the lateral view by overlying soft tissue and osseous structures. Bones/Alignment: No evidence of acute compression fracture. No listhesis. Joints: Mild degenerative disc disease. Miscellaneous: None. IMPRESSION: No acute osseous abnormality. Mild degenerative changes. Electronically signed by: Joshua Mckeon MD (10/23/2019 10:45 AM) [id number]
== END | disposition home or self-care (01) ==
LOC: RAD 09:29
PROVIDERS: ATTEND Family Medicine
DX: M50.30 Other cervical disc degeneration, unspecified cervical region (principal); M47.814 Spondylosis without myelopathy or radiculopathy, thoracic region; M51.34 Other intervertebral disc degeneration, thoracic region
CPT/HCPCS: 72040; 72072

== ENCOUNTER → 2019-11-17 | Outpatient (CLI) | payer OTHER ==
--- NOTE | 2019-11-17 13:24 | RAD ---
CERVICAL SPINE WO CONTRAST DATE: 11/17/2019 11:15 AM INDICATION: CERVICALGIA, PARASTHESIS TECHNIQUE: Multiplanar multisequence magnetic resonance imaging of the cervical spine was performed without administration of intravenous contrast using the standard cervical spine protocol. COMPARISON: None. FINDINGS: Reversal of the cervical lordosis. No acute fracture. Mild multilevel degenerative disc desiccation. Bone marrow signal intensity is normal. The spinal cord is normal in signal intensity. On the limited views of the cranial cavity and brain, the cerebellum and chris have normal morphology and signal characteristics. No Chiari malformation. No soft tissue abnormality. Normal signal voids are present in the vertebral arteries. C2-3: No significant spinal canal stenosis or neural foraminal narrowing. C3-4: No significant spinal canal stenosis or neural foraminal narrowing. C4-5: No significant spinal canal stenosis or neural foraminal narrowing. C5-6: Disc osteophyte complex which abuts the ventral cord. Uncovertebral hypertrophy. Mild spinal canal stenosis. No neural foraminal narrowing. C6-7: Disc osteophyte complex. Uncovertebral hypertrophy. Mild bilateral neural foraminal narrowing. No spinal canal stenosis. C7-T1: No significant spinal canal stenosis or neural foraminal narrowing. IMPRESSION: Mild cervical spondylosis, detailed level by level above. Electronically signed by: Joshua Mckeon MD (11/17/2019 1:21 PM) [id number]
== END | disposition home or self-care (01) ==
LOC: MRI 10:44
PROVIDERS: ATTEND Family Medicine
DX: M47.812 Spondylosis without myelopathy or radiculopathy, cervical region (principal); M25.78 Osteophyte, vertebrae; M50.30 Other cervical disc degeneration, unspecified cervical region; I10 Essential (primary) hypertension; E03.9 Hypothyroidism, unspecified; D53.0 Protein deficiency anemia; Z82.69 Family history of other diseases of the musculoskeletal system and connective tissue
CPT/HCPCS: 72141

== ENCOUNTER → 2019-11-17 | Outpatient (CLI) | payer OTHER ==
[2019-11-17 11:16] LABS: BASO % 0 % (0-3); EOS % 1 % (0-3); HEMATOCRIT 40.4 % (36.0-47.0); HEMOGLOBIN 13.6 g/dL (12.0-15.5); LYMPH # 2.9 x10^3/uL (1.0-4.8); LYMPH % 30 % (24-48); MEAN CORPUSCULAR HEMOGLOBIN 33 pg (25-35); MEAN CORPUSCULAR HGB CONC 34 g/dL (31-37); MEAN CORPUSCULAR VOLUME 96 fL (79-100); MONO # 0.4 x10^3/uL (0.0-1.1); MONO % 5 % (0-9); NEUT # 6.3 x10^3/uL (1.8-7.7); NEUT % 65 % (31-73); PLATELET COUNT 430 x10^3/uL (140-400); RED BLOOD COUNT 4.19 x10^6/uL (3.50-5.40); RED CELL DISTRIBUTION WIDTH 12.2 % (11.5-14.5); WHITE BLOOD COUNT 9.7 x10^3/uL (4.0-11.0)
[2019-11-17 11:42] LABS: ALBUMIN 4.1 g/dL (3.4-5.0); ALBUMIN/GLOBULIN RATIO 1.3 (1.0-1.7); CALCIUM 9.1 mg/dL (8.5-10.1); CREATININE 0.8 mg/dL (0.6-1.0); GFR 80.7; POTASSIUM 4.4 mmol/L (3.5-5.1); TOTAL BILIRUBIN 0.2 mg/dL (0.2-1.0); TOTAL PROTEIN 7.2 g/dL (6.4-8.2)
[2019-11-17 17:10] LABS: THYROXINE 10.2 ug/dL (4.5-12.0)
[2019-11-20 21:08] LABS: ANA INTERP Negative (.)
== END | disposition home or self-care (01) ==
LOC: LAB 10:50
PROVIDERS: ATTEND Nurse Practitioner
DX: I10 Essential (primary) hypertension (principal); E03.9 Hypothyroidism, unspecified; D53.0 Protein deficiency anemia; Z82.69 Family history of other diseases of the musculoskeletal system and connective tissue
CPT/HCPCS: 36415; 80053; 84436; 84443; 85025; 86038

== ENCOUNTER → 2019-11-28 | Outpatient (CLI) | payer OTHER ==
[~2019-11-28] MED LIST changes: +AMIT25TA PO; +BACL10TA PO; +DICL75TA PO; +IOHEXOL 180 MG/ML 10 ML VIAL. ONE; +LEVO125T5 PO; +LISI10TA2 PO; +methylPREDNISolone ACETATE 40 MG/ML VIAL. ONE; +methylPREDNISolone ACETATE 80 MG/ML VIAL. ONE
--- NOTE | 2019-11-28 12:52 | PAIN ---
DATE OF SERVICE: 11/28/2019 INITIAL CONSULTATION FOR PAIN CLINIC CHIEF COMPLAINT: Neck and bilateral upper extremity pain, right greater than left. HISTORY OF PRESENT ILLNESS: The patient is a 39-year-old female who presents with history of pain since 09/11/2019. The patient was working. 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 The patient reports she has gotten slightly better since the injury, but only very minimally. She has done physical therapy and also taking Flexeril. She tried baclofen and ibuprofen. Baclofen does help to some extent as to the ibuprofen, but the Flexeril was not as helpful. She is doing stretching and strength exercises from physical therapy currently, but still in significant pain which is becoming more and more noticeable and difficult with working. The patient describes it as radiating, aching and cold, sometimes sharp and dull in the neck itself. The patient reports it awakens her from sleep at least twice a night. She does take Ambien and amitriptyline to help her sleep that does not affect her bowel or bladder control, but does affect her ability to walk and specifically with using upper extremity with working requirements activities. The patient did have MRI scan of the cervical spine showing mild cervical spondylosis with C5-C6 showing a disk osteophyte complex abutting the ventral cord with mild spinal canal stenosis. C6-C7 showed disk osteophyte complex with mild bilateral neural foraminal narrowing as well. The patient rates her disability rating from 0-10, 10 being the worst, is a 9 with family home responsibilities, 7 with recreation and self-care activities, 8 with social activity, 10 with occupation and sexual behavior and 6 with life support activities. PAST MEDICAL HISTORY: Significant for hypertension, depression. PREVIOUS SURGERY: Include tubal ligation in 2015 and in 2019. CURRENT MEDICATIONS: Include levothyroxine, baclofen, ibuprofen, Xanax, and lisinopril. ALLERGIES: THE PATIENT IS ALLERGIC TO SULFA, WHICH CAUSES ANAPHYLAXIS. FAMILY HISTORY: Significant for hypertension only. SOCIAL HISTORY: The patient does not drink alcohol, does not smoke. Denies not use any illegal, illicit or recreational drugs. She is , lives with her spouse, lives locally in [place], [place]. 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 REVIEW OF SYSTEMS: The patient's review of systems is positive for those items mentioned in history of present illness. All systems reviewed and otherwise negative. It is complete, full and well documented on the patient's chart. PHYSICAL EXAMINATION: VITAL SIGNS: The patient's blood pressure is 134/94, pulse 70, respirations 16, temperature 98.2 degrees Fahrenheit, height is 5 feet 3 inches, weight is 129 pounds. GENERAL: The patient is awake, alert, oriented, appropriate, very pleasant demeanor. HEENT: Shows normocephalic, atraumatic. Extraocular movements are intact and symmetrical. Oral cavity: Mucous membranes moist and pink. Dentition is intact. NECK: Shows anterior throat supple without palpable lymphadenopathy noted. Swallow reflex symmetrical. CHEST: Shows normal on inspection. Breath sounds are clear to auscultation bilaterally. No rales, rhonchi or wheezes auscultated. HEART: Shows S1, S2 clear. No murmurs auscultated. ABDOMEN: Soft, nontender, nondistended. No palpable organomegaly is noted. No rebound or guarding demonstrated. BACK: Shows spine grossly in the midline. Cervical lordotic curvature is intact and normal in appearance as is thoracic kyphosis and lumbar lordotic curvature. Cervical paraspinous muscle shows symmetrical with inspection, on palpation shows some moderate tenderness diffusely bilaterally going diffusely without significant radiation. The patient has good rotational motion of cervical spine with minor tenderness with extension only, but not with forward flexion, right or left lateral rotation past 45 degrees closer to 90 degrees without significant increase in pain. EXTREMITIES: The patient's upper extremities show deep tendon reflexes at 2+ in the biceps and triceps tendons. Motor exam is strong with instrument sterilizer strength rated at 5/5 as is bicep and tricep flexion. Shoulder shrug is strong and intact without loss of strength on resistance as is abduction of shoulder to 90 degrees without loss of strength with some moderate tenderness, more on the right base of the neck and shoulder than the left. Upper extremity are warm and dry to touch, equal in color and appearance. Peripheral pulses are 2+ radial. No peripheral edema is noted. SKIN: The patient's skin shows warm and dry, good turgor. No edema. No sores, rashes or bruising throughout. IMPRESSION: 1. This is a 39-year-old female with history of injury at work 09/11/2019 while lifting and moving a patient, as she is a registered nurse and reports in the intensive care with resultant radicular pain bilaterally, right greater than left. 2. MRI scan of the cervical spine as noted. 3. Hypertension. PLAN: Options were discussed with the patient including conservative medical managements, physical therapies and interventional techniques and she has done physical therapies and exercise as she would like to pursue interventional techniques. We discussed a cervical epidural steroid injection using description as well as anatomical models to describe the procedure. Risks were then discussed including, but not limited to bleeding, infection, possibility of epidural hematoma, subsequent neurological compromise, dural puncture, headaches, spinal cord and/or nerve damage, side effects of steroid medication and poor results regarding pain control. The patient understands and wished to proceed. The patient will return to clinic in approximately 2 weeks for followup. She was counseled on return appointment, activity level and side effects to be aware of. DIAGNOSES: Cervical radiculopathy with cervical degenerative disk disease. PROCEDURE: Cervical epidural steroid injection, translaminar approach at C6-C7 level using C-arm fluoroscopic guidance under sterile prep and drape using local anesthetic. MEDICATION INJECTED: A total of 120 mg Depo-Medrol plus 5 mL of preservative-free normal saline and 2 mL of contrast. CONDITION AT DISCHARGE: Stable. The patient tolerated procedure well, had no complications. CARLOS MEDINA MD DR: ELTON/chaz JOB#: [id number] / [id number] LULY Soto MD
== END ==
LOC: PNCL 07:51
PROVIDERS: ATTEND Anesthesiology
DX: M50.123 Cervical disc disorder at C6-C7 level with radiculopathy (principal); I10 Essential (primary) hypertension; F32.9 Major depressive disorder, single episode, unspecified; Z98.51 Tubal ligation status; Z98.890 Other specified postprocedural states; Z88.1 Allergy status to other antibiotic agents
CPT/HCPCS: 62321; J1030; J1040; Q9965

== ENCOUNTER → 2019-12-11 | Outpatient (CLI) | payer OTHER ==
--- NOTE | 2019-12-11 10:52 | PAIN ---
DATE OF SERVICE: 12/11/2019 PROGRESS NOTE FOR PAIN CLINIC DIAGNOSES: Cervical radiculopathy with cervical degenerative disk disease. HISTORY OF PRESENT ILLNESS: The patient is a 39-year-old female who returns for followup status post cervical epidural steroid injection x 1. The patient reports about 25% improvement, still with some tingling pain in the arms and shoulders, but better than it was. The patient reports some of the pain has decreased. The patient reports the pain is a 7 on a scale of 10 at its worst over the past week, 7 on average and 4 at its least and is a 7 today. The patient reports no new motor or sensory deficits. No dropping items or difficulty with using upper extremities. The patient reports it still awakens her from sleep about every 3-4 hours, but otherwise feels it is still about 25% improved overall. The patient reports no new changes. PHYSICAL EXAMINATION: VITAL SIGNS: The patient's blood pressure 160/98, pulse 87, respirations 16, temperature 98.2 degrees Fahrenheit, weight is 129 pounds. GENERAL: The patient is awake, alert, oriented, appropriate, very pleasant demeanor. HEENT: Head shows normocephalic, atraumatic. Extraocular movements are intact and symmetrical. Oral cavity shows mucous membranes moist and pink. Dentition is intact. NECK: Shows anterior throat supple without palpable lymphadenopathy noted. Swallow reflex symmetrical. CHEST: Shows normal on inspection. Breath sounds are clear bilaterally. No rales, rhonchi or wheezes auscultated. ABDOMEN: Soft, nontender, nondistended. BACK: Shows spine grossly in the midline. Cervical paraspinous muscle shows symmetrical on inspection with normal cervical lordotic curvature with palpation shows only very mild tenderness in inferior aspect of the cervical paraspinous musculature bilaterally, but only diffusely without any radiation. The patient has good rotational motion of cervical spine, both laterally as well as extension and flexion without difficulty. EXTREMITIES: Upper extremities show deep tendon reflexes at 2+ in the biceps and triceps tendons. 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 Peripheral pulses are 2+ radial. No peripheral edema bilaterally. Options were discussed with the patient. The patient's old chart was reviewed as her current medication regimen updated. Current review of systems updated today as well. We will proceed with a second in a series of cervical epidural steroid injection today with fluoroscopic guidance. Risks were again discussed including, but not limited to bleeding, infection, possibility of epidural hematoma, subsequent neurological compromise, dural puncture, headaches, spinal cord and/or nerve damage, side effects of steroid medication and poor results regarding pain control. The patient understands and wished to proceed. The patient will return to clinic in approximately 2 weeks for followup. She was counseled on return appointment, activity level and side effects to be aware of. DIAGNOSES: Cervical radiculopathy with cervical degenerative disk disease. PROCEDURE: Cervical epidural steroid injection, translaminar approach C6-C7 level using C-arm fluoroscopic guidance under sterile prep and drape using local anesthetic. MEDICATION INJECTED: A total of 120 mg Depo-Medrol plus 5 mL of preservative-free normal saline and 2 mL of contrast. CONDITION AT DISCHARGE: Stable. The patient tolerated procedure well, had no complications. CARLOS MEDNIA MD DR: ELTON/chaz JOB#: [id number] / [id number]
== END ==
LOC: PNCL 10:56
PROVIDERS: ATTEND Anesthesiology
DX: M50.123 Cervical disc disorder at C6-C7 level with radiculopathy (principal)
CPT/HCPCS: 62321; J1030; J1040; Q9965

== ENCOUNTER → 2020-01-04 | Outpatient (CLI) | payer OTHER ==
[~2020-01-04] MED LIST changes: +TRAM-48 PO
--- NOTE | 2020-01-04 16:47 | PAIN ---
DATE OF SERVICE: 01/04/2020 PROGRESS NOTE FOR PAIN CLINIC DIAGNOSES: Cervical radiculopathy with cervical degenerative disk disease. HISTORY OF PRESENT ILLNESS: The patient is a 39-year-old female who returns for followup status post cervical epidural steroid injection x 2. The patient reports a good decrease in pain about 25% after the first injection, but no significant decrease in pain after the last injection. The patient reports still significant pain in the base of the neck, shoulders, upper back, mid back radiating to bilateral upper extremities, mostly in the anterior bicep and into the forearm with numbness in the right thumb. The patient reports about its an 8 on a scale of 10 at its worst over the past week, 7 on average, 6 at its least and is a 7 today. The patient reports it is aching, shooting, sharp and dull, alternating in the back with a spastic pain that is becoming more constant and cramping in the mid upper back, also stabbing quality in the base of neck. 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 The patient reports it awakens her from sleep frequently each night. She has had 2 sessions of physical therapy, which she feels is too early to tell if it is helping or not so far, but that has been beneficial. The patient reports she is on blood pressure medication because of the stress of the situation with her pain and the pain itself. The patient reports no new motor or sensory deficits, no bowel or bladder incontinence. PHYSICAL EXAMINATION: VITAL SIGNS: The patient's blood pressure 143/94, pulse 80, respirations 16, temperature 98.2 degrees Fahrenheit, weight is 129 pounds. GENERAL: The patient is awake, alert, oriented, appropriate, very pleasant demeanor. HEENT: Head shows normocephalic, atraumatic. Extraocular movements are intact and symmetrical. Oral cavity: Mucous membranes moist and pink. Dentition is intact. NECK: Shows anterior throat supple without palpable lymphadenopathy noted. Swallow reflex symmetrical. CHEST: Shows normal on inspection. Breath sounds are clear to auscultation bilaterally. No rales, rhonchi or wheezes auscultated. HEART: Shows S1, S2 clear. No murmurs auscultated. ABDOMEN: Soft, nontender, nondistended. BACK: Shows spine grossly in the midline. Cervical paraspinous muscle shows symmetrical on inspection, on palpation shows some mild tenderness diffusely in the middle and lower distribution of paraspinous muscles, also in the superior medial trapezius and in the rhomboid distribution very firm, tender musculature bilaterally in the thoracic paraspinous and superior aspect of the thoracic distribution without atrophy, hypertrophy, or trigger points. The patient has good rotation of the neck both laterally greater than 45 degrees right and left, somewhat guarded as well as extension with some mild pain in the base of the neck, but not with forward flexion which was ____. EXTREMITIES: Upper extremities show deep tendon reflexes 2+ in biceps, triceps tendons. Motor exam is 5/5 with winter intern strength as well as bicep and tricep flexion and symmetrical. Peripheral pulses are 2+. No peripheral edema is noted. Options were discussed with the patient. The patient's old chart was reviewed as her current medication regimen updated. Current review of systems updated today as well and we will proceed with a third in a series of cervical epidural steroid injection today with fluoroscopic guidance. Risks were again discussed including, but not limited to bleeding, infection, possibility of epidural hematoma, subsequent neurologic compromise, dural puncture, headaches, spinal cord and/or nerve damage, side effects of steroid medication and poor results regarding pain control. The patient understands and wished to proceed. The patient will return to clinic in approximately 2 weeks for followup. She was counseled on return appointment, activity level and side effects to be aware of. DIAGNOSES: Cervical radiculopathy with cervical degenerative disk disease. PROCEDURE: Cervical epidural steroid injection, translaminar approach C6-C7 level using C-arm fluoroscopic guidance under sterile prep and drape using local anesthetic. MEDICATION INJECTED: A total of 120 mg Depo-Medrol plus 5 mL of preservative-free normal saline and 2 mL of contrast. CONDITION AT DISCHARGE: Stable. The patient tolerated procedure well, had no complications. CARLOS MEDINA MD DR: ELTON/chaz JOB#: [id number] / [id number]
== END | disposition home or self-care (01) ==
LOC: PNCL 14:13
PROVIDERS: ATTEND Anesthesiology
DX: M50.123 Cervical disc disorder at C6-C7 level with radiculopathy (principal); Z88.2 Allergy status to sulfonamides; Z79.899 Other long term (current) drug therapy
CPT/HCPCS: 62321; J1030; J1040; Q9965

== ENCOUNTER → 2020-02-26 | Outpatient (CLI) | payer OTHER ==
[~2020-02-26] MED LIST changes: -IOHEXOL 180 MG/ML 10 ML VIAL. ONE; -methylPREDNISolone ACETATE 40 MG/ML VIAL. ONE; -methylPREDNISolone ACETATE 80 MG/ML VIAL. ONE
--- NOTE | 2020-02-26 13:53 | KCIC ---
MRI Thoracic Spine without contrast History: Thoracic radiculopathy, lifting injury in September. Technique: Multiplanar, multi sequential noncontrast MR imaging was performed of the thoracic spine. Comparison: None Findings: There is mild motion. Thoracic vertebral body stature and AP alignment are maintained. Thoracic cord caliber is within normal limits, no defined or expansile signal change. Heterogeneous signal posterior to the thoracic cord is more commonly due to CSF pulsation artifact. Spinal canal is widely patent, no significant thoracic spinal stenosis at any level. Thoracic neural foramina are adequate. Intervertebral disc spaces are mostly preserved, mild narrowing about mid thoracic levels such as T4-5 through T8-9. There is no significant focal posterior disc abnormality. There is no significant marrow edema. There is minimal mid thoracic dextroscoliosis. Impression: 1. There is no thoracic spinal stenosis or neural foramina compromise. Electronically signed by: Joshua Rincon MD (02/26/2020 1:51 PM) [id number]
== END ==
LOC: KCIC MRI 09:06
PROVIDERS: ATTEND Neurological Surgery
DX: M54.14 Radiculopathy, thoracic region (principal)
CPT/HCPCS: 72146

== ENCOUNTER → 2020-03-07 | Outpatient (CLI) | payer OTHER ==
--- NOTE | 2020-03-07 16:29 | RAD ---
BONE SCAN LIMITED Clinical Indication: Occult fracture. Upper thoracic and cervical spine pain. Comparison: MR thoracic spine without contrast, February 26, 2020. MR cervical spine without contrast 11/17/2019. TECHNIQUE: Patient is injected with 26.2 mCi of technetium 99m MDP. After routine delay, anterior, posterior, and right and left lateral static images of the cervical and upper thoracic spine are obtained. Findings: Tracer uptake in the spine is homogeneous. Tracer uptake in ribs is symmetric. Tracer uptake of the scapulae is symmetric. There is no abnormal increased or decreased tracer uptake. Tracer distribution in the soft tissues is unremarkable. IMPRESSION: Normal limited bone scan. Electronically signed by: Faheem Fernandez MD (03/07/2020 4:27 PM) [id number]
== END ==
LOC: NM 08:34
PROVIDERS: ATTEND Neurological Surgery
DX: M48.53XA Collapsed vertebra, not elsewhere classified, cervicothoracic region, initial encounter for fracture (principal)
CPT/HCPCS: 78300; A9503

== ENCOUNTER → 2020-06-06 | Outpatient (CLI) | payer OTHER ==
--- NOTE | 2020-06-06 12:29 | KCIC ---
MRI THORACIC SPINE WO INDICATION: Reason: THORACIC PAIN / Spl. Instructions: / History: Injury 09/11/19. Pain/burning in upp er to mid thoracic region. TECHNIQUE: Multi-planar multi-weighted magnetic resonance imaging of the thoracic spine was performed without contrast using the standard protocol. COMPARISON: None. FINDINGS: The thoracic spine is normally aligned. No acute fracture. Vertebral body heights are maintained with out compression deformity. Mild multilevel degenerative disc desiccation and disc height loss. Bone m arrow signal intensity is normal. The spinal cord is normal in signal intensity. The conus medullaris terminates at a normal level. No soft tissue abnormality within the visualized chest or abdomen. The visualized thoracic aorta is n ormal caliber. No significant neuroforaminal narrowing or spinal canal stenosis. IMPRESSION: No compression deformities. No significant spinal canal stenosis or neural foraminal narrowing. Electronically signed by: Joshua Mckeon MD (06/06/2020 12:27 PM) [id number]
== END ==
LOC: KCIC MRI 09:49
PROVIDERS: ATTEND Physical Medicine & Rehabilitation Sports Medicine
DX: M54.6 Pain in thoracic spine (principal)
CPT/HCPCS: 72146

== ENCOUNTER → 2020-09-02 | Outpatient (CLI) | payer OTHER ==
[~2020-09-02] MED LIST changes: +LISI10TA16 PO; -LISI10TA2 PO
[2020-09-02 07:39] LABS: BASO % 1 % (0-3); EOS # 0.1 x10^3/uL (0.0-0.7); EOS % 2 % (0-3); HEMATOCRIT 35.1 % (36.0-47.0); LYMPH # 2.7 x10^3/uL (1.0-4.8); LYMPH % 37 % (24-48); MEAN CORPUSCULAR HEMOGLOBIN 33 pg (25-35); MEAN CORPUSCULAR HGB CONC 34 g/dL (31-37); MEAN CORPUSCULAR VOLUME 96 fL (79-100); MONO # 0.4 x10^3/uL (0.0-1.1); MONO % 6 % (0-9); NEUT % 55 % (31-73); PLATELET COUNT 331 x10^3/uL (140-400); RED BLOOD COUNT 3.65 x10^6/uL (3.50-5.40); RED CELL DISTRIBUTION WIDTH 12.2 % (11.5-14.5); WHITE BLOOD COUNT 7.3 x10^3/uL (4.0-11.0)
[2020-09-02 08:11] LABS: ALBUMIN 3.8 g/dL (3.4-5.0); ALBUMIN/GLOBULIN RATIO 1.3 (1.0-1.7); CHOLESTEROL/HDL RATIO 2.4; CREATININE 0.7 mg/dL (0.6-1.0); GFR 93.6; POTASSIUM 4.3 mmol/L (3.5-5.1); TOTAL BILIRUBIN 0.2 mg/dL (0.2-1.0); TOTAL PROTEIN 6.7 g/dL (6.4-8.2)
[2020-09-02 13:05] LABS: THYROXINE 8.8 ug/dL (4.5-12.0)
[2020-09-04 06:00] LABS: ANA INTERP Negative (.)
== END ==
LOC: LAB 07:15
PROVIDERS: ATTEND Nurse Practitioner
DX: L85.3 Xerosis cutis (principal); E03.9 Hypothyroidism, unspecified; D53.9 Nutritional anemia, unspecified
CPT/HCPCS: 36415; 80053; 80061; 82550; 84436; 84443; 85025; 85651; 86038